=== PATIENT | female | born 1950 | race Caucasian/White ===

== ENCOUNTER 2022-07-18 23:09 | Inpatient (IN) | payer OTHER, MEDICARE ==
[2022-07-18] MEDS ORDERED: ONDANSETRON 4 MG/2 ML VIAL IVPUSH ONE (23:30)
[2022-07-18] MEDS ORDERED: SODIUM CHLORIDE 0.9% 1000 ML INFUS.BAG IV ONE (23:30)
[2022-07-18] MEDS ORDERED: ONDANSETRON 4 MG/2 ML VIAL ONE (23:51)
[2022-07-18 23:59] LABS: BASO % 0.3 % (0-2.0); EOS % 0.2 % (0-4.5); HEMATOCRIT 36.7 % (32.4-45.2); HEMOGLOBIN 12.8 GM/dL (10.7-15.3); LYMPH % 13.1 % (8-40); MEAN CELL VOLUME 91.4 fl (80-96); MEAN PLT VOLUME 8.2 fl (7.5-11.1); MONO % 6.6 % (3.8-10.2); NEUT % 79.8 % (42.8-82.8); PLATELET COUNT 171 10^3/uL (134-434); RBC 4.01 M/mm3 (3.60-5.2); RDW 12.7 % (11.6-15.6); WHITE BLOOD COUNT 8.7 K/mm3 (4.0-10.0)
[2022-07-19] MEDS ORDERED: LORazepam 2 MG/ML SDV VIAL IVPUSH ONE (00:09)
[2022-07-19 00:22] LABS: ALBUMIN 3.6 g/dl (3.4-5.0); BLOOD UREA NITROGEN 4.9 mg/dL (7-18); CALCIUM 8.4 mg/dL (8.5-10.1); MAGNESIUM 1.8 mg/dL (1.8-2.4)
[2022-07-19 00:25] LABS: CREATININE 0.5 mg/dL (0.55-1.3)
[2022-07-19 00:27] LABS: BILIRUBIN,TOTAL 1.1 mg/dL (0.2-1); TOT PROT 6.8 g/dl (6.4-8.2)
[2022-07-19 00:30] LABS: N-TERMINAL BNP 335.6 pg/ml (5-125)
[2022-07-19 00:31] LABS: INR 1.1 (0.83-1.09); PROTHROMBIN TIME (PATIENT) 12.8 SEC (9.7-13.0)
[2022-07-19 00:34] LABS: ACTIVATED PTT 28.4 SECONDS (25.2-36.5)
[2022-07-19 00:41] LABS: LACTIC ACID 3.4 mmol/L (0.4-2.0)
[2022-07-19] MEDS ORDERED: LACTATED RINGERS SOLUTION 1000 ML INFUS.BAG IV ONE (00:44)
[2022-07-19] MEDS ORDERED: KCL 10 MEQ IVPB 20 MEQ/200 ML INFUS.BAG IVPB ONE (00:56)
[2022-07-19] MEDS: KCL 10 MEQ IVPB 10 MEQ/100 ML INFUS.BAG IVPB SCH ×8 (01:09→21:36)
[2022-07-19] MEDS ORDERED: KCL 10 MEQ IVPB 10 MEQ/100 ML INFUS.BAG IVPB ONE (02:37)
[2022-07-19 05:51] LABS: VENOUS BASE EXCESS -1.4 mmol/L (-2-2); VENOUS O2 SATURATION 45.3 % (70-80); VENOUS PCO2 40.6 mmHg (38-52); VENOUS PH 7.382 (7.310-7.410)
[2022-07-19 06:15] LABS: CALCIUM 8.4 mg/dL (8.5-10.1)
[2022-07-19 06:16] LABS: BLOOD UREA NITROGEN 4.4 mg/dL (7-18)
[2022-07-19 06:19] LABS: CREATININE 0.5 mg/dL (0.55-1.3)
[2022-07-19 06:20] LABS: LACTIC ACID 2.1 mmol/L (0.4-2.0)
[2022-07-19 06:38] LABS: OPIATES, URI NEGATIVE (NEGATIVE); PHENCYCLIDINE,URINE NEGATIVE (NEGATIVE); URINE BENZODIAZEPINES NEGATIVE (NEGATIVE)
[2022-07-19 06:39] LABS: COCAINE, UR NEGATIVE (NEGATIVE); METHADONE, UR NEGATIVE (NEGATIVE); URINE AMPHETAMINES NEGATIVE (NEGATIVE); URINE BARBITURATES NEGATIVE (NEGATIVE)
[2022-07-19] MEDS ORDERED: SODIUM CHLORIDE 1,000 ML IV SCH (07:45)
[2022-07-19 08:38] LABS: MAGNESIUM 2.1 mg/dL (1.8-2.4)
[2022-07-19 08:57] LABS: EPI CELLS 2 /uL (0-25.1); HYALINE CASTS 0 /uL (0-3.1); PH,URINE 8.5 (5.0-8.0); URINE APPEARANCE CLEAR; URINE BACTERIA 11 /uL (0-1359); URINE BILIRUBIN NEGATIVE (NEGATIVE); URINE COLOR YELLOW; URINE GLUCOSE (UA) NEGATIVE (NEGATIVE); URINE KETONE NEGATIVE (NEGATIVE); URINE LEUK ESTERASE NEGATIVE (NEGATIVE); URINE NITRITE NEGATIVE (NEGATIVE); URINE PROTEIN NEGATIVE (NEGATIVE); URINE RBC 13 /uL (0-23.9); URINE UROBILINOGEN 0.2 mg/dL (0.2-1.0); URINE WBC 1 /uL (0-25.8)
[2022-07-19] MEDS: ENOXAPARIN NA (PORCINE) 40 MG/0.4 ML DISP.SYRIN SQ SCH (09:49)
[2022-07-19] MEDS: LOSARTAN POTASSIUM 50 MG TABLET PO SCH (11:10)
[2022-07-19] MEDS ORDERED: SODIUM CHLORIDE 1,000 ML with POTASSIUM CHLORIDE 20 MEQ IV SCH (11:40)
[2022-07-19] MEDS ORDERED: POTASSIUM CHLORIDE ORAL LIQUID 20 MEQ/15 ML PO ONE (11:41)
[2022-07-19] MEDS ORDERED: SODIUM CHLORIDE 1,000 ML with POTASSIUM CHLORIDE 10 MEQ IV SCH (11:42)
[2022-07-19] MEDS ORDERED: KCL 10 MEQ IVPB 10 MEQ/100 ML INFUS.BAG IVPB SCH (11:45)
[2022-07-19] MEDS ORDERED: POTASSIUM CHLORIDE 10 MEQ in SODIUM CHLORIDE 1,000 ML IV SCH (11:49)
[2022-07-19 13:32] LABS: CALCIUM 8.4 mg/dL (8.5-10.1)
[2022-07-19 13:33] LABS: BLOOD UREA NITROGEN 3.1 mg/dL (7-18); MAGNESIUM 2.6 mg/dL (1.8-2.4)
[2022-07-19 13:36] LABS: CREATININE 0.5 mg/dL (0.55-1.3)
[2022-07-19 18:20] VITALS: BMI 27.4
[2022-07-19] MEDS ORDERED: DEXTROSE 5%-WATER - 1,000 ML with POTASSIUM CHLORIDE 10 MEQ IV SCH (21:00)
[2022-07-19] MEDS ORDERED: DESMOPRESSIN ACETATE 4 MCG/ML AMP IVPB ONE (21:02)
[2022-07-19] MEDS ORDERED: DESMOPRESSIN ACETATE 2 MCG in SODIUM CHLORIDE 50 ML IVPB ONE (21:30)
[2022-07-19] MEDS: ATORVASTATIN CA 40 MG TABLET (FP) PO SCH (21:45)
[2022-07-19 22:19] LABS: EPI CELLS 2 /uL (0-25.1); HYALINE CASTS 2 /uL (0-3.1); URINE APPEARANCE CLOUDY; URINE BACTERIA 8061 /uL (0-1359); URINE BILIRUBIN NEGATIVE (NEGATIVE); URINE COLOR YELLOW; URINE GLUCOSE (UA) NEGATIVE (NEGATIVE); URINE KETONE 1+ (NEGATIVE); URINE LEUK ESTERASE 3+ (NEGATIVE); URINE NITRITE NEGATIVE (NEGATIVE); URINE PROTEIN NEGATIVE (NEGATIVE); URINE RBC 28 /uL (0-23.9); URINE UROBILINOGEN 0.2 mg/dL (0.2-1.0); URINE WBC 554 /uL (0-25.8)
[2022-07-20 06:46] LABS: BASO % 0.2 % (0-2.0); EOS % 0.4 % (0-4.5); HEMATOCRIT 34.4 % (32.4-45.2); HEMOGLOBIN 11.8 GM/dL (10.7-15.3); LYMPH % 26.8 % (8-40); MCH 31.2 pg (25.7-33.7); MCHC 34.2 g/dl (32.0-36.0); MEAN CELL VOLUME 91.4 fl (80-96); MEAN PLT VOLUME 8.4 fl (7.5-11.1); MONO % 10.7 % (3.8-10.2); NEUT % 61.9 % (42.8-82.8); PLATELET COUNT 172 10^3/uL (134-434); RBC 3.77 M/mm3 (3.60-5.2); RDW 12.7 % (11.6-15.6); WHITE BLOOD COUNT 6.6 K/mm3 (4.0-10.0)
[2022-07-20 07:12] LABS: ALBUMIN 2.9 g/dl (3.4-5.0); CALCIUM 7.8 mg/dL (8.5-10.1); MAGNESIUM 2.2 mg/dL (1.8-2.4)
[2022-07-20 07:13] LABS: BLOOD UREA NITROGEN 3.9 mg/dL (7-18)
[2022-07-20 07:15] LABS: CREATININE 0.4 mg/dL (0.55-1.3)
[2022-07-20 07:16] LABS: PHOSPHOROUS 2.7 mg/dL (2.5-4.9)
[2022-07-20 07:17] LABS: BILIRUBIN,TOTAL 0.7 mg/dL (0.2-1); TOT PROT 5.6 g/dl (6.4-8.2)
[2022-07-20] MEDS: ENOXAPARIN NA (PORCINE) 40 MG/0.4 ML DISP.SYRIN SQ SCH (09:28)
[2022-07-20] MEDS: LOSARTAN POTASSIUM 50 MG TABLET PO SCH (09:28)
[2022-07-20] MEDS: KCL 10 MEQ IVPB 10 MEQ/100 ML INFUS.BAG IVPB SCH ×2 (14:44→16:51)
[2022-07-20] MEDS ORDERED: POTASSIUM CHLORIDE TABS 10 MEQ TABLET.ER (FP) PO ONE (16:51)
[2022-07-20 17:17] LABS: BLOOD UREA NITROGEN 5.9 mg/dL (7-18); CALCIUM 8.5 mg/dL (8.5-10.1)
[2022-07-20 17:18] LABS: ALBUMIN 3.4 g/dl (3.4-5.0)
[2022-07-20 17:21] LABS: CREATININE 0.5 mg/dL (0.55-1.3)
[2022-07-20 17:22] LABS: BILIRUBIN,TOTAL 0.8 mg/dL (0.2-1)
[2022-07-20 17:23] LABS: TOT PROT 6.5 g/dl (6.4-8.2)
[2022-07-20] MEDS ORDERED: SODIUM CHLORIDE 500 ML IV ONE (18:30)
[2022-07-20] MEDS: ATORVASTATIN CA 40 MG TABLET (FP) PO SCH (21:18)
[2022-07-21 07:04] LABS: BASO % 0.3 % (0-2.0); EOS % 0.5 % (0-4.5); HEMATOCRIT 35.9 % (32.4-45.2); HEMOGLOBIN 12.3 GM/dL (10.7-15.3); LYMPH % 14.5 % (8-40); MCH 31.3 pg (25.7-33.7); MCHC 34.1 g/dl (32.0-36.0); MEAN CELL VOLUME 91.9 fl (80-96); MEAN PLT VOLUME 8.7 fl (7.5-11.1); MONO % 9.2 % (3.8-10.2); NEUT % 75.5 % (42.8-82.8); PLATELET COUNT 180 10^3/uL (134-434); RBC 3.91 M/mm3 (3.60-5.2); RDW 12.8 % (11.6-15.6); WHITE BLOOD COUNT 11.5 K/mm3 (4.0-10.0)
[2022-07-21 07:32] LABS: ALBUMIN 3.2 g/dl (3.4-5.0); BLOOD UREA NITROGEN 5.3 mg/dL (7-18); CALCIUM 8.5 mg/dL (8.5-10.1)
[2022-07-21 07:35] LABS: CREATININE 0.5 mg/dL (0.55-1.3)
[2022-07-21 07:36] LABS: TOT PROT 6.4 g/dl (6.4-8.2)
[2022-07-21 07:37] LABS: BILIRUBIN,TOTAL 0.6 mg/dL (0.2-1)
[2022-07-21] MEDS: ENOXAPARIN NA (PORCINE) 40 MG/0.4 ML DISP.SYRIN SQ SCH (09:26)
[2022-07-21] MEDS: LOSARTAN POTASSIUM 50 MG TABLET PO SCH (09:27)
[2022-07-21] MEDS ORDERED: POTASSIUM CHLORIDE 10 MEQ in SODIUM CHLORIDE 0.45% 1,000 ML IVPB SCH (12:15)
[2022-07-21] MEDS: ERTAPENEM SODIUM 1 GM in SODIUM CHLORIDE 50 ML IVPB SCH (13:47)
[2022-07-21] MEDS: ATORVASTATIN CA 40 MG TABLET (FP) PO SCH (22:46)
[2022-07-22 07:09] LABS: BASO % 0.4 % (0-2.0); EOS % 1.3 % (0-4.5); HEMATOCRIT 35.6 % (32.4-45.2); HEMOGLOBIN 12.1 GM/dL (10.7-15.3); LYMPH % 28.5 % (8-40); MCH 31.4 pg (25.7-33.7); MCHC 33.8 g/dl (32.0-36.0); MEAN CELL VOLUME 92.8 fl (80-96); MEAN PLT VOLUME 8.7 fl (7.5-11.1); MONO % 10.1 % (3.8-10.2); NEUT % 59.7 % (42.8-82.8); PLATELET COUNT 194 10^3/uL (134-434); RBC 3.84 M/mm3 (3.60-5.2); WHITE BLOOD COUNT 6.3 K/mm3 (4.0-10.0)
[2022-07-22 07:34] LABS: CALCIUM 8.7 mg/dL (8.5-10.1)
[2022-07-22 07:35] LABS: ALBUMIN 3.1 g/dl (3.4-5.0); BLOOD UREA NITROGEN 8.5 mg/dL (7-18)
[2022-07-22 07:38] LABS: CREATININE 0.5 mg/dL (0.55-1.3)
[2022-07-22 07:39] LABS: BILIRUBIN,TOTAL 0.3 mg/dL (0.2-1)
[2022-07-22 07:40] LABS: TOT PROT 6.3 g/dl (6.4-8.2)
[2022-07-22] MEDS: SODIUM CHLORIDE 1,000 ML IV SCH (08:55)
[2022-07-22] MEDS: LOSARTAN POTASSIUM 50 MG TABLET PO SCH (09:13)
[2022-07-22] MEDS: ENOXAPARIN NA (PORCINE) 40 MG/0.4 ML DISP.SYRIN SQ SCH (09:20)
[2022-07-22] MEDS: ERTAPENEM SODIUM 1 GM in SODIUM CHLORIDE 50 ML IVPB SCH (09:41)
[2022-07-22] MEDS: LACTOBACILLUS ACIDOPHILUS 1 TABLET PO SCH (15:50)
[2022-07-22] MEDS: ATORVASTATIN CA 40 MG TABLET (FP) PO SCH (21:51)
[2022-07-23 05:18] VITALS: RESP 18
[2022-07-23] MEDS: SODIUM CHLORIDE 1,000 ML IV SCH (07:43)
[2022-07-23 08:11] LABS: BASO % 0.5 % (0-2.0); EOS % 1.5 % (0-4.5); HEMATOCRIT 37.4 % (32.4-45.2); HEMOGLOBIN 12.6 GM/dL (10.7-15.3); LYMPH % 34.3 % (8-40); MCH 31.3 pg (25.7-33.7); MCHC 33.6 g/dl (32.0-36.0); MEAN CELL VOLUME 93.2 fl (80-96); MEAN PLT VOLUME 8.9 fl (7.5-11.1); MONO % 8.2 % (3.8-10.2); NEUT % 55.5 % (42.8-82.8); PLATELET COUNT 222 10^3/uL (134-434); RBC 4.01 M/mm3 (3.60-5.2); RDW 12.7 % (11.6-15.6); WHITE BLOOD COUNT 5.7 K/mm3 (4.0-10.0)
[2022-07-23 08:17] LABS: CHLORIDE 106 mmol/L (98-107); SODIUM 138 mmol/L (136-145)
[2022-07-23 08:20] LABS: ANION GAP 3 MMOL/L (8-16); BLOOD UREA NITROGEN 9.1 mg/dL (7-18); CALCIUM 8.9 mg/dL (8.5-10.1); CO2 29 mmol/L (21-32); GLUCOSE,RANDOM 97 mg/dL (74-106)
[2022-07-23 08:21] LABS: ALBUMIN 3.3 g/dl (3.4-5.0)
[2022-07-23 08:23] LABS: CREATININE 0.5 mg/dL (0.55-1.3); SGPT/ALT 32 U/L (13-61)
[2022-07-23 08:24] LABS: SGOT/AST 24 U/L (15-37)
[2022-07-23 08:25] LABS: TOT PROT 6.6 g/dl (6.4-8.2)
[2022-07-23 08:26] LABS: ALK PHOS 82 U/L (45-117); BILIRUBIN,TOTAL 0.4 mg/dL (0.2-1)
[2022-07-23 08:35] VITALS: BP 140/62; PULSE 80; TEMP 97.4
[2022-07-23] MEDS: LACTOBACILLUS ACIDOPHILUS 1 TABLET PO SCH (09:21)
[2022-07-23] MEDS: ENOXAPARIN NA (PORCINE) 40 MG/0.4 ML DISP.SYRIN SQ SCH (09:21)
[2022-07-23] MEDS: LOSARTAN POTASSIUM 50 MG TABLET PO SCH (09:21)
[2022-07-23] MEDS: ERTAPENEM SODIUM 1 GM in SODIUM CHLORIDE 50 ML IVPB SCH (11:03)
== END 2022-07-23 15:15 | disposition home or self-care (01) | DRG 640 ==
LOC: JER 23:09 → JERBED 07-19 01:13 → J2W 07-19 07:00
PROVIDERS: ADMIT Internal Medicine; ATTEND Internal Medicine
DX: E86.9 Volume depletion, unspecified (principal); G93.41 Metabolic encephalopathy; S06.0XAA Concussion with loss of consciousness status unknown, initial encounter; N39.0 Urinary tract infection, site not specified; Z16.12 Extended spectrum beta lactamase (ESBL) resistance; M62.82 Rhabdomyolysis; R55 Syncope and collapse; E87.20 Acidosis, unspecified; E87.1 Hypo-osmolality and hyponatremia; I10 Essential (primary) hypertension; E78.5 Hyperlipidemia, unspecified; E87.6 Hypokalemia; F41.9 Anxiety disorder, unspecified; K21.9 Gastro-esophageal reflux disease without esophagitis; W19.XXXA Unspecified fall, initial encounter; Y93.9 Activity, unspecified; Y92.89 Other specified places as the place of occurrence of the external cause; Y99.9 Unspecified external cause status
CPT/HCPCS: 0241U-QW; 36415; 70450-TC; 71045-TC-FY; 72125-TC; 80048; 80053; 80307; 81003; 82533; 82550; 82553; 82803; 82962; 83605; 83690; 83735; 83880; 83935; 84100; 84300; 84443; 84484; 85025; 85610; 85730; 86850; 86900; 86901; 87040; 87086; 87186; 93005; 93010; 93306-TC; 93880-TC; 97116-GP; 97161-GP; 99285-25; J2597